=== PATIENT | female | born 1965 | race Asian ===

== ENCOUNTER 2019-02-04 06:09 | Day surgery (SDC) | payer OTHER ==
[~2019-02-04] VITALS: Ht 152.4 cm; Wt 40.7 kg
[2019-02-04 07:19] VITALS: Ht 152.4 cm; Wt 40.7 kg
[2019-02-04 07:43] VITALS: BP 115/71; PULSE 65; RESP 21
[2019-02-04] MEDS ORDERED: MIDAZOLAM 1 MG/ML 2 ML INJ ONE (08:42)
[2019-02-04] MEDS ORDERED: FENTAnyl 50 MCG/ML VIAL ONE (08:42)
[2019-02-04 09:00] VITALS: BP 96/57; PULSE 62; RESP 20
== END 2019-02-04 13:40 | disposition home or self-care (01) ==
LOC: GIL 06:09
PROVIDERS: ATTEND Internal Medicine Gastroenterology
DX: Z12.11 Encounter for screening for malignant neoplasm of colon (principal); K64.8 Other hemorrhoids
CPT/HCPCS: 45378; 84703; J2250; J3010; Z7610